=== PATIENT | male | born 1945 | race African-American/Black ===

== ENCOUNTER 2020-02-03 23:03 | Observation (INO) ==
[2020-02-03] MEDS ORDERED: ONDANSETRON 4 MG/2 ML VIAL IV ONE (23:26)
[2020-02-03] MEDS ORDERED: ASPIRIN 325 MG TABLET PO STA (23:26)
[2020-02-03] MEDS ORDERED: ALUM/MAG/SIMETH/LIDO VISC 1:1 30 ML BOTTLE PO STA (23:26)
[2020-02-04 00:06] LABS: Basophils % 0.3 % (0.0-0.8); Eosinophils # 0.1 10*3/uL (0.0-0.87); Eosinophils % 0.4 % (0.00-10.9); Hematocrit 39.3 VOL% (42.0-52.0); Hemoglobin 12.8 GM/DL (14.0-18.0); Immature Granulocytes % 0.6 %; Immature Granulocytes Absolute 0.07 #; Lymphocytes # 0.5 10*3/uL (1.4-4.0); Lymphocytes % 4.6 % (21.2-54.2); Mean Corpuscular HGB Conc 32.6 GM/DL (32-36); Mean Corpuscular Volume 88.7 FL (87-102); Mean Platelet Volume 11.5 FL (9.6-12.0); Monocytes % 3.4 % (1.7-12.7); Neutrophils % 90.7 % (38.7-73.9); Platelet Count 224 T/CUMM (130-400); Red Blood Count 4.43 MC/CUMM (3.8-5.5); Red Cell Distribution Width 17.3 % (9.3-17.3); White Blood Count 11.4 T/CUMM (4-12)
[2020-02-04 00:18] LABS: PT Patient Result 10.6 SECS (9.8-11.9)
[2020-02-04 00:30] LABS: Alanine Aminotransferase 17 U/L (16-61); Alkaline Phosphatase 73 U/L (45-117); Aspartate Amino Transferase 27 U/L (0-37); Bilirubin,Total < 0.39 MG/DL (0.2-1.0); Blood Urea Nitrogen 11 MG/DL (7-18); Calcium 9.4 MG/DL (8.5-10.1); Estimated Glom Filtration Rate 79 ML/MIN; Glucose 176 MG/DL (74-106); Osmolality,Calculated 277.7 MOS/KG (273-304); Total Protein 8.2 G/DL (6.4-8.3); Troponin I < 0.015 NG/ML (0.00-0.045)
[2020-02-04 00:45] LABS: Eosinophils 1 % (0-10); Lymphocytes 3 % (20-55); Platelet Estimate Normal; Segmented Neutrophils 94 % (50-85); Total Cells Counted 100
[2020-02-04 00:46] LABS: Hypochromasia Slight; Microcytosis 1+; Polychromasia Slight
[2020-02-04 00:47] LABS: Ovalocytes Few
[2020-02-04] MEDS ORDERED: CIPROFLOXACIN INJ 400 MG in PREMIX 1 EACH IV STA (01:39)
[2020-02-04] MEDS ORDERED: ONDANSETRON 4 MG/2 ML VIAL IV PRN (01:43)
[2020-02-04] MEDS ORDERED: BISACODYL 5 MG TABLET PO PRN (01:43)
[2020-02-04] MEDS ORDERED: LACTATED RINGERS 1,000 ML IV SCH (02:00)
[2020-02-04 06:04] LABS: Basophils % 0.2 % (0.0-0.8); Eosinophils % 0.2 % (0.00-10.9); Hematocrit 38.1 VOL% (42.0-52.0); Hemoglobin 12.2 GM/DL (14.0-18.0); Immature Granulocytes % 0.5 %; Immature Granulocytes Absolute 0.05 #; Lymphocytes # 0.7 10*3/uL (1.4-4.0); Lymphocytes % 7.7 % (21.2-54.2); Mean Corpuscular Volume 87.4 FL (87-102); Mean Platelet Volume 11.3 FL (9.6-12.0); Monocytes % 6.2 % (1.7-12.7); Neutrophils % 85.2 % (38.7-73.9); Platelet Count 209 T/CUMM (130-400); Red Blood Count 4.36 MC/CUMM (3.8-5.5); White Blood Count 9.2 T/CUMM (4-12)
[2020-02-04 06:37] LABS: Alanine Aminotransferase 14 U/L (16-61); Albumin 3.7 G/DL (3.4-5.0); Alkaline Phosphatase 67 U/L (45-117); Aspartate Amino Transferase 15 U/L (0-37); Bilirubin,Total < 0.39 MG/DL (0.2-1.0); Blood Urea Nitrogen 12 MG/DL (7-18); Estimated Glom Filtration Rate 96 ML/MIN; Glucose 115 MG/DL (74-106); Osmolality,Calculated 279.4 MOS/KG (273-304); Total Protein 7.2 G/DL (6.4-8.3)
[2020-02-04] MEDS ORDERED: PANTOPRAZOLE 40 MG VIAL IV SCH (09:00)
[2020-02-04 11:57] VITALS: BP 161/83
[2020-02-04] MEDS ORDERED: CIPROFLOXACIN INJ 400 MG in PREMIX 1 EACH IV SCH (14:00)
[2020-02-04] MEDS ORDERED: CIPROFLOXACIN 500 MG TABLET PO SCH (21:00)
== END 2020-02-04 12:51 | disposition home or self-care (01) ==
LOC: N.EDINP 23:03 → N.ED 23:03 → N.3E 02-04 02:35
PROVIDERS: ADMIT Surgery; ATTEND Surgery

== ENCOUNTER 2020-02-13 12:36 | Inpatient (IN) ==
[2020-02-13 13:26] LABS: Basophils % 0.5 % (0.0-0.8); Eosinophils # 0.1 10*3/uL (0.0-0.87); Hematocrit 41.1 VOL% (42.0-52.0); Hemoglobin 13.3 GM/DL (14.0-18.0); Immature Granulocytes Absolute 0.16 #; Lymphocytes # 0.6 10*3/uL (1.4-4.0); Mean Corpuscular HGB Conc 32.4 GM/DL (32-36); Mean Corpuscular Volume 86.2 FL (87-102); Mean Platelet Volume 10.6 FL (9.6-12.0); Neutrophils % 84.5 % (38.7-73.9); Platelet Count 233 T/CUMM (130-400); Red Blood Count 4.77 MC/CUMM (3.8-5.5); Red Cell Distribution Width 16.7 % (9.3-17.3); White Blood Count 8.2 T/CUMM (4-12)
[2020-02-13 13:45] LABS: Bilirubin,Total 0.9 MG/DL (0.2-1.0); Calcium 9.8 MG/DL (8.5-10.1); Osmolality,Calculated 275.1 MOS/KG (273-304); Total Protein 8.5 G/DL (6.4-8.3)
[2020-02-13] MEDS ORDERED: LEVOFLOXACIN INJ 500 MG in PREMIX 1 EACH IV STA (14:14)
[2020-02-13 14:16] LABS: Bilirubin,Urine Negative (Negative); Blood, Urine Negative (Negative); Glucose,Urine (UA) 50 mg/dL (Negative); Ketones,Urine Negative (Negative); Nitrite,Urine Negative (Negative); Protein,Urine Negative; RBC,Urine 2 /HPF (0-4); Urine Appearance CLEAR (Clear); Urine Color Yellow (Yellow); Urine Specific Gravity 1.054 (1.001-1.035); WBC,Urine <1 /HPF (0-6)
[2020-02-13] MEDS ORDERED: MORPHINE 4 MG/1 ML VIAL IV STA (14:30)
[2020-02-13] MEDS ORDERED: KETOROLAC 15 MG/1 ML VIAL IV PRN (14:35)
[2020-02-13] MEDS ORDERED: ONDANSETRON 4 MG/2 ML VIAL IV PRN (14:35)
[2020-02-13] MEDS ORDERED: ALBUTEROL/IPRATROPIUM 3 ML NEB RESP TX PRN ×2 (14:35→14:43)
[2020-02-13] MEDS ORDERED: IBUPROFEN 400 MG TABLET PO PRN (14:35)
[2020-02-13] MEDS ORDERED: MORPHINE 4 MG/1 ML VIAL IV PRN ×2 (14:35)
[2020-02-13] MEDS ORDERED: ALBUTEROL 2.5 MG/3 ML NEB RESP TX PRN (14:43)
[2020-02-13] MEDS ORDERED: GLUCAGON 1 MG VIAL IM PRN (14:44)
[2020-02-13] MEDS ORDERED: DEXTROSE 50% 25 GM/50 ML VIAL IV PRN (14:44)
[2020-02-13] MEDS ORDERED: PANTOPRAZOLE 40 MG TABLET PO SCH (15:00)
[2020-02-13] MEDS ORDERED: metroNIDAZOLE INJ 500 MG in PREMIX 1 EACH IV SCH (16:00)
[2020-02-13] MEDS: LACTATED RINGERS 1,000 ML IV SCH (17:05)
[2020-02-13] MEDS: PANTOPRAZOLE 40 MG TABLET PO SCH (17:38)
[2020-02-13] MEDS: INSULIN LISPRO 100 UNIT/ML SUBCUT SCH (17:46)
[2020-02-13] MEDS: metroNIDAZOLE INJ 500 MG in PREMIX 1 EACH IV SCH (18:01)
[2020-02-13] MEDS: THEOPHYLLINE ER 300 MG TABLET PO SCH ×2 (18:41→21:26)
[2020-02-13] MEDS: ENALAPRIL 20 MG TABLET PO SCH (20:59)
[2020-02-13] MEDS: amLODIPine 10 MG TABLET PO SCH (20:59)
[2020-02-13] MEDS: MONTELUKAST 10 MG TABLET PO SCH (20:59)
[2020-02-13] MEDS: DOXAZOSIN 4 MG TABLET PO SCH (20:59)
[2020-02-14] MEDS: metroNIDAZOLE INJ 500 MG in PREMIX 1 EACH IV SCH ×3 (01:34→18:30)
[2020-02-14] MEDS: LACTATED RINGERS 1,000 ML IV SCH ×5 (05:08→15:40)
[2020-02-14 06:01] LABS: Basophils % 0.2 % (0.0-0.8); Eosinophils # 0.1 10*3/uL (0.0-0.87); Eosinophils % 0.8 % (0.00-10.9); Hematocrit 35.2 VOL% (42.0-52.0); Hemoglobin 11.6 GM/DL (14.0-18.0); Immature Granulocytes % 0.5 %; Immature Granulocytes Absolute 0.04 #; Lymphocytes # 0.6 10*3/uL (1.4-4.0); Lymphocytes % 7.2 % (21.2-54.2); Mean Corpuscular Volume 86.5 FL (87-102); Mean Platelet Volume 10.8 FL (9.6-12.0); Monocytes % 6.8 % (1.7-12.7); Neutrophils % 84.5 % (38.7-73.9); Platelet Count 251 T/CUMM (130-400); Red Blood Count 4.07 MC/CUMM (3.8-5.5); Red Cell Distribution Width 16.8 % (9.3-17.3); White Blood Count 8.4 T/CUMM (4-12)
[2020-02-14 06:14] LABS: Albumin 3.2 G/DL (3.4-5.0); Bilirubin,Total 1.4 MG/DL (0.2-1.0); Calcium 9.4 MG/DL (8.5-10.1); Total Protein 7.3 G/DL (6.4-8.3)
[2020-02-14] MEDS: INSULIN LISPRO 100 UNIT/ML SUBCUT SCH ×3 (08:06→17:47)
[2020-02-14] MEDS ORDERED: INDOMETHACIN SUPP 50 MG SUPP RECTAL ONE (08:47)
[2020-02-14] MEDS ORDERED: ESMOLOL 100 MG/10 ML VIAL IV ONE (09:00)
[2020-02-14] MEDS ORDERED: ONDANSETRON 4 MG/2 ML VIAL ONE (09:00)
[2020-02-14] MEDS ORDERED: ROCURONIUM 100 MG/10 ML VIAL IV ONE ×2 (09:00→13:58)
[2020-02-14] MEDS ORDERED: LIDOCAINE 2% 5 ML VIAL ONE (09:00)
[2020-02-14] MEDS ORDERED: SUCCINYLCHOLINE 200 MG/10 ML VIAL ONE ×2 (09:00→13:58)
[2020-02-14] MEDS ORDERED: propofoL 200 MG/20 ML VIAL IV ONE ×2 (09:00→13:58)
[2020-02-14] MEDS ORDERED: PHENYLEPHRINE 1 MG/10 ML SYRINGE IV ONE (09:00)
[2020-02-14] MEDS: NON-FORMULARY MEDICATION (Fluticasone Furoate-Vilanterol [Breo Ellipta] 100-25 mcg/dose Bl INH SCH (09:05)
[2020-02-14] MEDS: PANTOPRAZOLE 40 MG TABLET PO SCH (09:05)
[2020-02-14 10:03] LABS: PT Patient Result 11.2 SECS (9.8-11.9)
[2020-02-14] MEDS ORDERED: fentaNYL 100 MCG/2 ML VIAL ONE (12:15)
[2020-02-14] MEDS ORDERED: INDOCYANINE GREEN 25 MG VIAL IV ONE (15:38)
[2020-02-14] MEDS: LEVOFLOXACIN INJ 750 MG in PREMIX 1 EACH IV SCH (15:40)
[2020-02-14] MEDS: MONTELUKAST 10 MG TABLET PO SCH (22:04)
[2020-02-14] MEDS: amLODIPine 10 MG TABLET PO SCH (22:04)
[2020-02-14] MEDS: DOXAZOSIN 4 MG TABLET PO SCH (22:04)
[2020-02-14] MEDS: ENALAPRIL 20 MG TABLET PO SCH (22:04)
[2020-02-15] MEDS: metroNIDAZOLE INJ 500 MG in PREMIX 1 EACH IV SCH ×3 (02:37→18:23)
[2020-02-15] MEDS: LACTATED RINGERS 1,000 ML IV SCH ×4 (02:37→16:21)
[2020-02-15 06:29] LABS: Bilirubin,Total 0.7 MG/DL (0.2-1.0); Calcium 9.2 MG/DL (8.5-10.1); Osmolality,Calculated 274.5 MOS/KG (273-304); Total Protein 6.8 G/DL (6.4-8.3)
[2020-02-15] MEDS ORDERED: BUPIVACAINE MPF 0.25% 30 ML VIAL ONE (06:31)
[2020-02-15] MEDS ORDERED: LIDOCAINE 1%/EPI INJ 20 ML VIAL ONE (06:31)
[2020-02-15] MEDS ORDERED: TISSUE ADHESIVE 1 EACH APPLICATOR TOP ONE (06:31)
[2020-02-15] MEDS ORDERED: propofoL 200 MG/20 ML VIAL IV ONE (09:19)
[2020-02-15] MEDS ORDERED: SEVOFLURANE 1 UNIT/15 MINUTE INH ONE (09:19)
[2020-02-15] MEDS ORDERED: LIDOCAINE 2% 5 ML VIAL ONE (09:19)
[2020-02-15] MEDS ORDERED: MIDAZOLAM 2 MG/2 ML VIAL ONE (09:19)
[2020-02-15] MEDS ORDERED: ROCURONIUM 100 MG/10 ML VIAL IV ONE (09:20)
[2020-02-15] MEDS ORDERED: fentaNYL 100 MCG/2 ML VIAL ONE (09:20)
[2020-02-15] MEDS ORDERED: KETOROLAC 30 MG/1 ML VIAL ONE (09:20)
[2020-02-15] MEDS ORDERED: ACETAMINOPHEN 1,000 MG/100 ML VIAL IV ONE (09:20)
[2020-02-15] MEDS ORDERED: SUCCINYLCHOLINE 200 MG/10 ML VIAL ONE (09:20)
[2020-02-15] MEDS ORDERED: ONDANSETRON 4 MG/2 ML VIAL ONE (09:20)
[2020-02-15] MEDS ORDERED: DEXAMETHASONE 4 MG/1 ML VIAL ONE (09:20)
[2020-02-15] MEDS ORDERED: GLYCOPYRROLATE 0.4 MG/2 ML VIAL ONE (09:20)
[2020-02-15] MEDS ORDERED: NEOSTIGMINE 10 MG/10 ML VIAL ONE (09:21)
[2020-02-15] MEDS: INSULIN LISPRO 100 UNIT/ML SUBCUT SCH ×3 (10:17→17:21)
[2020-02-15] MEDS: NON-FORMULARY MEDICATION (Fluticasone Furoate-Vilanterol [Breo Ellipta] 100-25 mcg/dose Bl INH SCH (10:18)
[2020-02-15] MEDS: PANTOPRAZOLE 40 MG TABLET PO SCH (10:18)
[2020-02-15 11:58] LABS: Basophils % 0.2 % (0.0-0.8); Eosinophils % 0.4 % (0.00-10.9); Hematocrit 35.8 VOL% (42.0-52.0); Hemoglobin 11.5 GM/DL (14.0-18.0); Immature Granulocytes % 0.9 %; Immature Granulocytes Absolute 0.09 #; Lymphocytes # 0.4 10*3/uL (1.4-4.0); Lymphocytes % 3.8 % (21.2-54.2); Mean Corpuscular HGB Conc 32.1 GM/DL (32-36); Mean Corpuscular Volume 87.5 FL (87-102); Mean Platelet Volume 10.4 FL (9.6-12.0); Monocytes % 1.7 % (1.7-12.7); Platelet Count 239 T/CUMM (130-400); Red Blood Count 4.09 MC/CUMM (3.8-5.5); Red Cell Distribution Width 17.2 % (9.3-17.3)
[2020-02-15 12:22] LABS: Albumin 3.2 G/DL (3.4-5.0); Bilirubin,Total 0.4 MG/DL (0.2-1.0); Calcium 9.3 MG/DL (8.5-10.1); Osmolality,Calculated 274.8 MOS/KG (273-304); Total Protein 7.3 G/DL (6.4-8.3)
[2020-02-15 12:48] LABS: Anisocytosis 1+; Band Neutrophils 10 % (0-10); Giant Platelets Few; Lymphocytes 4 % (20-55); Platelet Estimate Normal; Segmented Neutrophils 84 % (50-85); Total Cells Counted 100
[2020-02-15 12:49] LABS: Polychromasia Slight
[2020-02-15] MEDS: LEVOFLOXACIN INJ 750 MG in PREMIX 1 EACH IV SCH (16:21)
[2020-02-15] MEDS: DOXAZOSIN 4 MG TABLET PO SCH (21:03)
[2020-02-15] MEDS: amLODIPine 10 MG TABLET PO SCH (21:03)
[2020-02-15] MEDS: MONTELUKAST 10 MG TABLET PO SCH (21:03)
[2020-02-15] MEDS: ENALAPRIL 20 MG TABLET PO SCH (21:03)
[2020-02-16] MEDS: metroNIDAZOLE INJ 500 MG in PREMIX 1 EACH IV SCH (03:05)
[2020-02-16] MEDS: LACTATED RINGERS 1,000 ML IV SCH ×3 (03:06→10:57)
[2020-02-16 06:03] LABS: Basophils % 0.2 % (0.0-0.8); Eosinophils % 0.2 % (0.00-10.9); Hematocrit 34.3 VOL% (42.0-52.0); Hemoglobin 11.2 GM/DL (14.0-18.0); Immature Granulocytes % 0.8 %; Immature Granulocytes Absolute 0.09 #; Lymphocytes # 0.9 10*3/uL (1.4-4.0); Lymphocytes % 8.4 % (21.2-54.2); Mean Corpuscular HGB Conc 32.7 GM/DL (32-36); Mean Corpuscular Volume 85.8 FL (87-102); Monocytes % 7.1 % (1.7-12.7); Neutrophils % 83.3 % (38.7-73.9); Platelet Count 291 T/CUMM (130-400); Red Cell Distribution Width 17.1 % (9.3-17.3); White Blood Count 11.2 T/CUMM (4-12)
[2020-02-16 06:25] LABS: Albumin 3.2 G/DL (3.4-5.0); Bilirubin,Total 0.6 MG/DL (0.2-1.0); Calcium 9.1 MG/DL (8.5-10.1); Osmolality,Calculated 277.7 MOS/KG (273-304); Total Protein 7.3 G/DL (6.4-8.3)
[2020-02-16 07:27] VITALS: BP 149/82
[2020-02-16] MEDS: PANTOPRAZOLE 40 MG TABLET PO SCH (09:13)
[2020-02-16] MEDS: NON-FORMULARY MEDICATION (Fluticasone Furoate-Vilanterol [Breo Ellipta] 100-25 mcg/dose Bl INH SCH (10:24)
[2020-02-16] MEDS: INSULIN LISPRO 100 UNIT/ML SUBCUT SCH (10:24)
== END 2020-02-16 11:25 | disposition home or self-care (01) | DRG 419 ==
LOC: N.ED 12:36 → N.EDINP 14:35 → N.3E 16:58
PROVIDERS: ADMIT Surgery; ATTEND Surgery
PROC: ERCPWSP (ICD-10-PCS; 2020-02-14 12:50)
PROC: LAPCHOL (2020-02-15 07:10)